=== PATIENT | female | born 1955 | race Caucasian/White ===

== ENCOUNTER 2022-09-30 11:12 | Emergency (ER) | payer MEDICARE, OTHER ==
[2022-09-30 12:39] LABS: ESTIMATED GFR 28 mL/min (>60)
[2022-09-30 12:46] LABS: CORONAVIRUS COVID-19 NAA NEGATIVE (NEGATIVE)
[2022-09-30] MEDS ORDERED: Lactated Ringers 1,000 ML IV ONE (13:18)
[2022-09-30] MEDS ORDERED: Ciprofloxacin in D5W 400 MG in Premix Bag 1 BAG IV ONE ×2 (13:18)
[2022-09-30] MEDS ORDERED: Metoprolol Succinate 25 MG Tab.ER PO ONE (16:42)
[2022-09-30] MEDS ORDERED: Lactated Ringers 1,000 ML IV SCH (16:45)
[2022-09-30] MEDS ORDERED: Sodium Chloride 0.9% 1,000 ML IV SCH (17:00)
[2022-09-30] MEDS ORDERED: VANCOmycin 1.25 GM/250 ML 1.25 GM in Premix Bag 1 BAG IV ONE (18:00)
== END 2022-09-30 17:37 ==
LOC: FB.ED 11:12
DX: A41.9 Sepsis, unspecified organism (principal); C50.919 Malignant neoplasm of unspecified site of unspecified female breast; J90 Pleural effusion, not elsewhere classified; R09.02 Hypoxemia; R74.01 Elevation of levels of liver transaminase levels; E80.6 Other disorders of bilirubin metabolism; I10 Essential (primary) hypertension; E78.00 Pure hypercholesterolemia, unspecified; D64.9 Anemia, unspecified; E66.9 Obesity, unspecified; Z68.28 Body mass index [BMI] 28.0-28.9, adult; Z88.0 Allergy status to penicillin; Z79.899 Other long term (current) drug therapy; Z20.822 Contact with and (suspected) exposure to COVID-19
CPT/HCPCS: 0241U; 36415; 71046; 80053; 83605; 83735; 85025; 87040; 96365; 96367; 99285-25; A9270-GY; J0744; J3370; J7030; J7120